=== PATIENT | male | born 1975 | race Caucasian/White ===

== ENCOUNTER 2022-02-10 12:53 | Emergency (ER) | payer SELFPAY ==
[2022-02-10 13:19] VITALS: BP 149/91; PULSE 102; RESP 18; TEMP 37.2; O2SAT 98; BMI 27.1
--- NOTE | 2022-02-10 16:53 | ED.WOUNDLAC ---
HPI - Wound/Laceration General Time Seen by Provider: 16:54 Date Seen: 02/10/22 Chief Complaint: Laceration/Wound Stated Complaint: Cut on LT wrist Time Seen by Provider: 02/10/22 16:51 Source: patient and RN notes reviewed Mode of arrival: ambulatory Limitations: no limitations History of Present Illness HPI narrative: Patient is a 46-year-old male who accidentally hit his left arm with a grinder machine knife setter causing bleeding. He states there was a vessel that was pumping. He denies any numbness or tingling in his hand, has been able to fully mobilize about the wrist and hand/fingers. He does believe his tetanus needs to be updated. He originally checked again in the ED, signed without being seen and then returned. He had used his mask and bound that onto his arm to help control the bleeding. Bleeding has been controlled since he applied pressure. This happened earlier today. Related Data Home Medications Medication Instructions Recorded Confirmed No Known Home Medications 02/10/22 02/10/22 Allergies Allergy/AdvReac Type Severity Reaction Status Date / Time No Known Drug Allergies Allergy Verified 02/10/22 13:21 Review of Systems Narrative: As per HPI Exam Const: Vital Signs, click to edit/add: Vital Signs - 24 hr 02/10/22 13:19 02/10/22 16:56 Temperature 98.9 F Pulse Rate [Right Pulse Oximeter] 102 H 85 Respiratory Rate 18 18 Blood Pressure [Ri ght Upper Arm] 149/91 H 172/112 H Pulse Oximetry 98 99 Oxygen Delivery Me thod Room Air Room Air Has a bandage on his left forearm with his mask and then a rubber piece that securing this. This was removed. On the inferior aspect of the straight laceration across his mid forearm, there is a constant vessel of darker blood, looks to be venous flow. Blocking this off, there is about a 2 cm wound just into the subcutaneous tissue, does not go below the fat in the forearm. No deeper structures are involved. This venous bloody is oozing quite prominently but is controlled with pressure easily. Documenting provider has reviewed patient's vital signs: yes Common normals: no apparent distress, average body habitus, oriented x3, no limitations, healthy appearing, alert and well nourished Neuro: Common normals: oriented x3 Sensorium/orientation: alert Course Course Hospital Course: Patient is obviously going to need repair of this laceration. We will update his tetanus as well. Vital Signs Vital signs: Initial Vital Signs Temperature 98.9 F 02/10/22 13:19 Temperature Source Temporal Artery Scan 02/10/22 13:19 Pulse Rate 102 H 02/10/22 13:19 Respiratory Rate 18 02/10/22 13:19 Blood Pressure 149/91 H 02/10/22 13:19 Blood Pressure Mean 110 02/10/22 13:19 Blood Pressure Position Sitting 02/10/22 13:19 Pulse Oximetry 98 02/10/22 13:19 Oxygen Delivery Method 02/10/22 13:19 Vital Signs Temperature 98.9 F 02/10/22 13:19 Pulse Rate 102 H 02/10/22 13:19 Respiratory Rate 18 02/10/22 13:19 Blood Pressure 149/91 H 02/10/22 13:19 Pulse Oximetry 98 02/10/22 13:19 Oxygen Delivery Method 02/10/22 13:19 Temperature 98.9 F 02/10/22 13:19 Pulse Rate 85 02/10/22 16:56 Respiratory Rate 18 02/10/22 16:56 Blood Pressure 172/112 H 02/10/22 16:56 Pulse Oximetry 99 02/10/22 16:56 Oxygen Delivery Method 02/10/22 16:56 Critical Care Time Critical Care Time Critical Care Time: No Discharge Plan Discharge Clinical Impression: Forearm laceration Qualifiers: Encounter type: initial encounter Patient Disposition: Home, Self-Care Condition: Stable Instructions: Care For Your Stitches (ED), Laceration (ED) Additional Instructions: Keep wound bandage during the day to keep it clean and dry. Can use bacitracin or Vaseline to the wound to keep the stitches from becoming crusty. Need to schedule a clinic appointment to evaluate the wound for suture removal in about 10-14 days. If there is concern of infection, please seek re-evaluation. May shower as you normally would. Can use Tylenol and ibuprofen as needed for pain management, follow bottle directions for dosing. Activity Level: Activity as Tolerated Prescriptions: No Action No Known Home Medications Follow Up/Referrals: Provider,Not a Local [Primary Care Provider] - Stand Alone Forms: [facility] Info Instructions Procedures Laceration Laceration 1: Pre procedure diagnosis: Left forearm laceration Post procedure diagnosis: Same Site marking: not applicable Verification/time out: correct patient, correct site and correct procedure Name of person performing procedure: Karen Mendez Site: other (Forearm) Side (If applicable): left Size (cm): 2 Description: linear and clean Depth: simple, single layer Local Anesthetic: lidocaine 1% and with epi Amount of anesthesia used (mL): 5 Pre-repair: wound explored and deep structures intact Skin layer closed with: other (Ethilon) Size (cm): 4-0 Number of sutures: 5 Technique: simple, interrupted Subcutaneous layer closed with: Vicryl and other (1 [id number] suture was used in the subcutaneous tissue on the inferior margin to help stop the bleeding from the vessel.) Size: 4-0 Number of sutures: 1 Estimated blood loss (if any): less than 5mls Conclusion: patient tolerated procedure
[2022-02-10 16:56] VITALS: BP 172/112; PULSE 85; RESP 18; O2SAT 99
--- NOTE | 2022-02-10 16:58 | ED.NURSE ---
is in the room doing a local and planning to suture the wound up.
[2022-02-10 17:05] VITALS: BP 163/67
[2022-02-10] MEDS: TETANUS/DIPHTH/PERTUSSIS 0.5 ML SYRINGE IM (17:41)
== END 2022-02-10 17:45 | disposition home or self-care (01) ==
PROVIDERS: Emergency Provider Family Medicine
DX: S51.812A Laceration without foreign body of left forearm, initial encounter (principal); W29.8XXA Contact with other powered hand tools and household machinery, initial encounter
CPT/HCPCS: 12032; 90471; 90715; 99283